=== PATIENT | female | born 1975 | race Caucasian/White ===

== ENCOUNTER 2018-07-14 12:45 | Emergency (ER) | payer MEDICAID ==
[~2018-07-14] VITALS: Ht 149.9 cm; Wt 63.6 kg
[2018-07-14 12:49] VITALS: BP 153/104
== END 2018-07-14 13:15 | disposition left against medical advice (07) ==
LOC: EMS 12:46
DX: R10.9 Unspecified abdominal pain (principal); R07.9 Chest pain, unspecified; Z53.21 Procedure and treatment not carried out due to patient leaving prior to being seen by health care provider
CPT/HCPCS: 93005

== ENCOUNTER 2019-07-26 17:08 | Inpatient (IN) | payer MEDICAID ==
[~2019-07-26] VITALS: Ht 149.9 cm; Wt 65.7 kg
[2019-07-26 17:20] LABS: BASOPHILS % (AUTO) 0.2 % (0.0-2.0); EOSINOPHILS % (AUTO) 1.9 % (1.0-6.0); HEMOGLOBIN 7.7 g/dL (12.0-16.0); LYMPHOCYTES # (AUTO) 2.8 K/uL (1.0-4.8); LYMPHOCYTES % (AUTO) 39.5 % (22.0-44.0); MEAN CORPUSCULAR VOLUME 65 fL (80-100); MONOCYTES # (AUTO) 0.7 K/uL (0.1-1.0); MONOCYTES % (AUTO) 9.8 % (2.0-9.0); NEUTROPHILS # (AUTO) 3.4 K/uL (1.8-7.7); NEUTROPHILS % (AUTO) 48.6 % (40.0-70.0); PLATELET COUNT (AUTO) 370 K/uL (150-450); RED BLOOD CELL COUNT(AUTO) 3.88 MIL/uL (4.00-5.20); RED CELL DISTRIBUTION WIDTH 18.3 % (11.5-14.5)
[2019-07-26] MEDS ORDERED: SODIUM CHLORIDE 0.9% 100 ML ONE (17:21)
[2019-07-26] MEDS ORDERED: IOVERSOL 350 MG/ML 100 ML VIAL ONE (17:21)
[2019-07-26 17:24] LABS: ANION GAP 5 mmol/L (8-16); CALCIUM, TOTAL 8.3 mg/dL (8.8-10.5); CARBON DIOXIDE 28 mmol/L (22-29); CHLORIDE 105 mmol/L (98-107); CREATININE 0.56 mg/dL (0.60-1.30); GLOMERULAR FILTR. RATE CALC > 60 mL/min (>60); GLUCOSE,RANDOM 100 mg/dL (70-110); POTASSIUM 3.5 mmol/L (3.5-5.1); SODIUM SERUM 138 mmol/L (136-145); UREA NITROGEN, BLOOD 13 mg/dL (7-18)
[2019-07-26 17:29] LABS: ALANINE AMINOTRANSFERASE 57 U/L (12-78); ALBUMIN 3.7 g/dL (3.4-5.0); ALKALINE PHOSPHATASE 110 U/L (46-116); ASPARTATE AMINOTRANSFERASE 33 U/L (15-37); BILIRUBIN,TOTAL 0.5 mg/dL (0.1-1.0); TOTAL PROTEIN, SERUM 7.3 g/dL (6.4-8.2)
[2019-07-26] MEDS ORDERED: ASPIRIN 325 MG TABLET PO ONE ×2 (17:30→18:15)
[2019-07-26 17:34] LABS: PROTHROMBIN TIME 9.8 SEC (9.4-11.6)
[2019-07-26] MEDS ORDERED: ALTEPLASE PER STROKE PROTOCOL CLINICAL ONE (17:45)
[2019-07-26] MEDS ORDERED: ALTEPLASE IV ONE ×2 (18:00)
[2019-07-26] MEDS ORDERED: WATER FOR INJECTION STERILE IV ONE ×2 (18:00)
[2019-07-26] MEDS ORDERED: ONDANSETRON HCL 4 MG/2 ML VIAL IVP PRN (18:30)
[2019-07-26] MEDS ORDERED: ACETAMINOPHEN 325 MG TABLET PO PRN (18:30)
[2019-07-26] MEDS ORDERED: 0.9% SODIUM CHLORIDE 10 ML SYRINGE IVP PRN (18:30)
[2019-07-26] MEDS ORDERED: FERR-89 PO (18:44)
[2019-07-26] MEDS ORDERED: ACETAMINOPHEN 325 MG TABLET PO ONE (19:45)
[2019-07-26 21:23] VITALS: BP 136/79
[2019-07-27 00:36] VITALS: BP 122/69
[2019-07-27 03:40] LABS: APPEARANCE,URINE CLEAR (CLEAR); BILIRUBIN,URINE NEGATIVE (NEGATIVE); GLUCOSE, URINE (UA) NEGATIVE (NEGATIVE); KETONES,URINE NEGATIVE (NEGATIVE); LEUKOCYTE ESTERASE ,URINE NEGATIVE (NEGATIVE); NITRATE,URINE NEGATIVE (NEGATIVE); OCCULT BLOOD,URINE NEGATIVE (NEGATIVE); PROTEIN,URINE NEGATIVE (NEGATIVE); UROBILINOGEN,URINE 0.2 mg/dL (<=1.0)
[2019-07-27 03:45] LABS: AMPHET/METH SCREEN,URINE NEGATIVE (NEGATIVE); BARBITURATE SCREEN, URINE NEGATIVE (NEGATIVE); BENZODIAZEPINES SCREEN,URINE NEGATIVE (NEGATIVE); CANNABINOID SCREEN,URINE NEGATIVE (NEGATIVE); COCAINE SCREEN,URINE NEGATIVE (NEGATIVE); METHADONE SCREEN, URINE NEGATIVE (NEGATIVE); OPIATE SCREEN,URINE NEGATIVE (NEGATIVE)
[2019-07-27 03:47] LABS: PHENCYCLIDINE SCREEN,URINE NEGATIVE (NEGATIVE)
[2019-07-27 03:58] LABS: BACTERIA,URINE None Seen /HPF (None Seen); RBC,URINE None Seen /HPF (0-2); SQUAMOUS EPITHELIAL CELL,UR Few /LPF (None Seen); WBC,URINE None Seen /HPF (0-5)
[2019-07-27 04:52] VITALS: BP 114/64
[2019-07-27] MEDS ORDERED: IPRATROPIUM BROMIDE 0.5 MG/2.5 ML NEB SOLUTION NEB PRN (06:00)
[2019-07-27] MEDS ORDERED: ZOLPIDEM TARTRATE 5 MG TABLET PO PRN (06:00)
[2019-07-27] MEDS ORDERED: ONDANSETRON HCL 4 MG/2 ML VIAL IVP PRN (06:00)
[2019-07-27] MEDS ORDERED: BISACODYL 10 MG RECTAL RECTAL SUPPOSITORY PR PRN (06:00)
[2019-07-27] MEDS ORDERED: MAGNESIUM HYDROXIDE SUSPENSION 30 ML UDCUP PO PRN (06:00)
[2019-07-27] MEDS ORDERED: ALBUTEROL SULFATE 2.5 MG/0.5 ML NEB SOLUTION NEB PRN (06:00)
[2019-07-27] MEDS ORDERED: HYDROCODONE/ACETAMINOPHEN 5-325 MG TABLET PO PRN (06:00)
[2019-07-27] MEDS ORDERED: ACETAMINOPHEN 325 MG TABLET PO PRN (06:00)
[2019-07-27] MEDS ORDERED: MORPHINE SULFATE 2 MG/ML SYRINGE IVP PRN (06:00)
[2019-07-27 07:32] VITALS: BP 105/67
[2019-07-27] MEDS: DOCUSATE SODIUM 100 MG CAPSULE PO SCH ×2 (08:42→21:00)
[2019-07-27] MEDS: HEPARIN SODIUM,PORCINE 5,000 UNITS/ML VIAL SQ SCH ×3 (08:43→23:46)
[2019-07-27 08:50] LABS: HEMOGLOBIN A1C 5.6 % (4.5-6.2)
[2019-07-27] MEDS ORDERED: ASPIRIN 81 MG EC TABLET PO SCH (09:00)
[2019-07-27 09:10] LABS: CHOL/HDL RATIO 3.5 (3.9-5.7); THYROID STIMULATING HORMONE 1.95 uIU/mL (0.36-3.74)
[2019-07-27] MEDS ORDERED: IBUPROFEN 800 MG TABLET PO PRN (10:00)
[2019-07-27] MEDS ORDERED: KETOROLAC TROMETHAMINE 15 MG/ML VIAL IVP ONE (10:00)
[2019-07-27 11:24] VITALS: BP 141/65
[2019-07-27 16:10] VITALS: BP 116/70
[2019-07-27 20:21] VITALS: BP 129/54
[2019-07-27] MEDS ORDERED: SIMVASTATIN 20 MG TABLET PO SCH (21:00)
[2019-07-28 00:05] VITALS: BP 112/62
[2019-07-28 04:25] VITALS: BP 101/53
[2019-07-28 07:50] VITALS: BP 115/61
[2019-07-28] MEDS: DOCUSATE SODIUM 100 MG CAPSULE PO SCH (08:09)
[2019-07-28] MEDS: HEPARIN SODIUM,PORCINE 5,000 UNITS/ML VIAL SQ SCH (08:11)
[2019-07-28] MEDS ORDERED: ASPIRIN 81 MG EC TABLET PO SCH (09:00)
[2019-07-28] MEDS ORDERED: ATOR10TA84 PO (10:31)
[2019-07-28] MEDS ORDERED: IBUP-2124 PO (10:32)
[2019-07-28 10:42] VITALS: BP 121/70
[2019-07-28] MEDS ORDERED: ASPI81 PO (12:35)
[2019-07-28] MEDS ORDERED: IBUP-2071 PO (12:36)
== END 2019-07-28 12:55 | disposition home or self-care (01) | DRG 47 ==
LOC: EMS 17:09 → 5N 20:00
PROVIDERS: ADMIT Hospitalist; ATTEND Hospitalist
DX: G45.9 Transient cerebral ischemic attack, unspecified (principal); E87.8 Other disorders of electrolyte and fluid balance, not elsewhere classified; D50.9 Iron deficiency anemia, unspecified; G40.909 Epilepsy, unspecified, not intractable, without status epilepticus
CPT/HCPCS: 70496; 70551; 83036; 84443; 86850; 86900; 86901; 93005; 93306; J1644; J1885; J2997; J7050